=== PATIENT | female | born 1940 | race Caucasian/White ===

== ENCOUNTER 2020-12-07 10:48 | Emergency (ER) | payer MEDICARE, OTHER, SELFPAY ==
[2020-12-07 10:59] VITALS: BP 135/70; PULSE 93; RESP 18; TEMP 37.4; O2SAT 97
--- NOTE | 2020-12-07 11:27 | ED.URI ---
HPI - URI/Sore Throat General Chief Complaint: Upper Respiratory Infection Stated Complaint: Sore Throat Time Seen by Provider: 12/07/20 11:27 Source: patient Mode of arrival: ambulatory Limitations: no limitations History of Present Illness HPI Narrative: Love Hollis is a 80-year-old female with a PMH of hypertension high cholesterol and hypothyroid, who [facility] with a sore throat and fatigue and a low fever over the last few days. She states her throat is very sore and has gotten worse over the last 3 days Related Data Allergies Allergy/AdvReac Type Severity Reaction Status Date / Time No Known Allergies Allergy Verified 04/07/20 15:14 Review of Systems Review of Systems: Narrative: CONSTITUTIONAL: Denies , chills, sweats. Low-grade fever at home EYES: Denies visual changes, redness, discharge. ENT: Denies rhinorrhea, congestion, has sore throat, difficulty swallowing, otalgia. CARDIOVASCULAR: Denies chest pain, palpitations, edema. RESPIRATORY: Denies dyspnea, wheezing, cough GASTROINTESTINAL: Denies abdominal pain, nausea, vomiting, diarrhea. GENITOURINARY: Denies dysuria, hematuria, abnormal discharge SKIN: Denies rash or itching. NEUROLOGIC: Denies numbness, or focal weakness. PSYCHIATRIC: Denies anxiety or depression. PMFSH Past Medical History Medical History Acquired hypothyroidism Essential (primary) hypertension Family History Family History Father Family history of coronary artery disease, Onset Age: 65 Patient's father is , Onset Age: 65 Mother Family history of colonic diverticulitis, Onset Age: 93 Patient's mother is , Onset Age: 93 Social History Social History Social History: Single Smoking status: Never smoker Second hand tobacco smoke exposure: No Alcohol intake: never Substance use: never Substance use type: does not use Gender identity (if verbalized by the patient): Female Comments At time of signature, I agree with nursing past medical, surgical, social and family history. There is no relevant family history pertinent to the presenting complaint. Exam Narrative: Exam Narrative: GENERAL: This is a well-nourished, well-developed patient, in mild distress. HEAD: normocephalic, atraumatic. EYES: Sclera clear/white. Vision is grossly intact. EARS: External ears normal, auditory canals clear and without drainage, TMs normal without perforation. Hearing grossly intact. NOSE: External nose normal without nasal discharge, nares without redness, no rhinorrhea. THROAT: Mucous membranes moist, posterior pharynx erythematous swelling NECK: Neck supple, tender CARDIOVASCULAR: Regular rate and rhythm without murmurs, gallops, or rubs. RESPIRATORY: Clear to auscultation. Breath sounds equal bilaterally. No wheezes, rales, or rhonchi. GASTROINTESTINAL: Abdomen soft, non-tender, SKIN: warm, intact with no suspicious lesions or rash, good texture and turgor. NEURO: awake, alert, and oriented to person, place and time. There were no obvious focal neurologic abnormalities. Steady gait EXTREMITIES: Normal range of motion. BACK: Nontender without deformity Course Course Emergency Course: Patient is in [facility] for complaints of sore throat that is worsened over 3 days low-grade fever and difficulty swallowing Strep is negative Covid is negative Due to her age, level of complaint, and worsening condition, started on amoxicillin 875 twice daily and low-dose steroids for 5 days Vital Signs Vital signs: Vital Signs Temperature 99.3 F 12/07/20 10:59 Pulse Rate 93 12/07/20 10:59 Respiratory Rate 18 12/07/20 10:59 Blood Pressure 135/70 12/07/20 10:59 Pulse Oximetry 97 12/07/20 10:59 Temperature 99.3 F 12/07/20 10:59 Pulse Rate 93
== END 2020-12-07 11:48 | disposition home or self-care (01) ==
PROVIDERS: Emergency Provider Nurse Practitioner; PCP Family Medicine
DX: J02.9 Acute pharyngitis, unspecified (principal); Z20.822 Contact with and (suspected) exposure to COVID-19; E03.9 Hypothyroidism, unspecified; I10 Essential (primary) hypertension
CPT/HCPCS: 87081; 87426; 87880; 99213; C9803; G0463

== ENCOUNTER 2022-04-12 10:59 | Outpatient (CLI) | payer MEDICARE, OTHER, SELFPAY ==
--- NOTE | ~2022-04-12 | XR_ITS ---
EXAMINATION: XR chest 2V 04/12/2022 11:43 INDICATION: Hypothyroidism. PROCEDURE: 2 view chest COMPARISON: No prior studies for comparison. FINDINGS: There are interstitial infiltrates in the periphery of the right lung base. There is apical pleural thickening/scarring. The cardiomediastinal silhouette is within normal limits. There are no pleural effusions. There is no pneumothorax suspected. There are calcified granuloma in the right upper thorax. There are cholecystectomy clips. IMPRESSION: 1: Coarse interstitial infiltrates of the right lower lung, likely atelectasis/fibrosis. Reviewed, dictated and finalized at location A. UCE CLERK IMPRESSION: 1: Coarse interstitial infiltrates of the right lower lung, likely atelectasis /fibrosis.
== END 2022-04-12 11:00 | disposition home or self-care (01) ==
LOC: ANHIMG 11:06
PROVIDERS: PCP Family Medicine; Visit Provider Nurse Practitioner Gerontology
DX: E03.9 Hypothyroidism, unspecified (principal); E78.2 Mixed hyperlipidemia; I10 Essential (primary) hypertension; R91.8 Other nonspecific abnormal finding of lung field
CPT/HCPCS: 71046

== ENCOUNTER 2023-06-23 11:37 | Outpatient (CLI) | payer MEDICARE, OTHER, SELFPAY ==
--- NOTE | ~2023-06-23 | XR_ITS ---
Clinical Indication: Abnormal chest x-ray PA and lateral views of the chest: Comparison: 04/12/2022 Findings: Stable right apical density, indeterminate, though stability since 2021 suggest benignity. Lungs are otherwise clear. Cardiomediastinal silhouette is within normal limits. Bones and soft tiss ues are unremarkable. Impression: No acute abnormality. Chronic right apical density, indeterminate. Reviewed, dictated and finalized at location . F MEDICAL DIRECTOR Impression: No acute abnormality. Chronic right apical density, indeterminate.
== END 2023-06-23 11:38 | disposition home or self-care (01) ==
LOC: ANHIMG 11:38
PROVIDERS: PCP Family Medicine; Visit Provider Internal Medicine Pulmonary Disease
DX: R91.8 Other nonspecific abnormal finding of lung field (principal)
CPT/HCPCS: 71046

== ENCOUNTER 2023-11-15 08:43 | Emergency (ER) | payer MEDICARE, OTHER, SELFPAY ==
--- NOTE | 2023-11-15 08:46 | ED.URI ---
HPI - URI/Sore Throat General Chief Complaint: Upper Respiratory Infection Stated Complaint: Shortness of Breath,Fatigue, Sore Throat Time Seen by Provider: 11/15/23 09:31 Source: patient and RN notes reviewed Mode of arrival: ambulatory Limitations: no limitations History of Present Illness HPI Narrative: 83-YEAR-OLD FEMALE PRESENTS CONCERN FOR 4 DAYS OF FATIGUE, DECREASED APPETITE, DECREASED ORAL INTAKE, SORE THROAT, HOARSE VOICE, PRODUCTIVE COUGH. REPORTS CHILLS, DENIES FEVER. SHE DENIES EXERTIONAL SHORTNESS OF BREATH. MD elicited complaint: cough Related Data Allergies Allergy/AdvReac Type Severity Reaction Status Date / Time No Known Allergies Allergy Verified 11/15/23 09:10 Review of Systems Review of Systems: CONSTITUTIONAL: Reports malaise, chills. Denies fever. EYES: Denies visual changes, redness, or discharge. ENT: Reports rhinorrhea, congestion, sore throat. CARDIOVASCULAR: Denies chest pain, palpitations, or edema. RESPIRATORY: Reports productive cough, dyspnea. GASTROINTESTINAL: Denies abdominal pain, nausea, vomiting, diarrhea SKIN: Denies rash or itching. MUSCULOSKELETAL: Denies myalgia. NEUROLOGIC: Denies headache. All systems reviewed & are unremarkable except as noted in HPI and below PMFSH Past Medical History Medical History Acquired hypothyroidism Essential (primary) hypertension Family History Family History Father Family history of coronary artery disease, Onset Age: 65 Patient's father is , Onset Age: 65 Mother Family history of colonic diverticulitis, Onset Age: 93 Patient's mother is , Onset Age: 93 Social History Social History Social History: Single Smoking status: Never smoker Second hand tobacco smoke exposure: No Alcohol intake: never Substance use: never Substance use type: does not use Living arrangements: alone Occupation/Education: retired Gender identity (if verbalized by the patient): Female Sexual Orientation (if Verbalized by the Patient): Straight or Heterosexual Comments At time of signature, agree with nursing past medical, surgical, social and family history. There is no relevant family history pertinent to the presenting complaint Exam Narrative: GENERAL: Nontoxic-appearing and in no acute distress. HEAD: Normocephalic EYES: PERRLA, conjunctivae clear ENT: Nares clear. Mucous membranes moist. TM pearly suggs with sharp light reflex bilaterally; no tragal tenderness. NECK: Supple. No lymphadenopathy CHEST: Clear to auscultation, breath sounds equal. No wheezing, rhonchi, rales, or stridor. No respiratory distress, speaks in full sentences. HEART: Regular rate and rhythm. No murmur heard. SKIN: Warm, dry, no rash. NEURO: Alert and oriented x3. PSYCH: Normal mood and affect Course Course Emergency Course: Based on this patient's age and positive COVID diagnosis I advised transfer to the emergency room for further evaluation/observation. Patient is refusing transfer to the emergency room at this time. I offered prescription of COVID antiviral but advised that they need to go to the emergency room if her symptoms worsen in any way. Anticipatory guidance given. Patient agrees to follow-up as directed and is aware of reasons to seek care at the emergency department. Portions of this record may have been created with voice recognition software [facility] Care: [facility] Vital Signs Vital signs: Reviewed. MDM - URI/Sore Throat MDM Narrative Medical decision making narrative: Differential diagnosis considered: Bañuelos virus, strep pharyngitis, allergic rhinitis, upper respiratory tract infection, sinusitis, rhinosinusitis, nasopharyngitis. viral pharyngitis, otitis media, otitis externa, pneumonia, bronchitis, viral coug
[2023-11-15 08:56] VITALS: BP 155/73; PULSE 88; RESP 16; TEMP 37.1; O2SAT 97
[2023-11-15 09:34] LABS: EDINFLUASCREEN Negative; EDINFLUBSCREEN Negative; EDSTREPNEGPOS1 Presumptive Negative
== END 2023-11-15 09:43 | disposition home or self-care (01) ==
PROVIDERS: Emergency Provider Nurse Practitioner; PCP Family Medicine
DX: U07.1 COVID-19 (principal); E03.9 Hypothyroidism, unspecified; I10 Essential (primary) hypertension
CPT/HCPCS: 87081; 87426; 87804; 87880; 99213; G0463